=== PATIENT | female | born 1935 | race Caucasian/White ===

== ENCOUNTER 2019-08-23 11:25 | Outpatient (CLI) | payer MEDICARE, OTHER ==
[2019-08-23 15:18] LABS: APPEARANCE,URINE CLOUDY (CLEAR); COLOR,URINE DARK YELLOW (YELLOW)
[2019-08-23 15:19] LABS: OCCULT BLOOD,URINE 1+ (NEGATIVE)
== END 2019-08-23 11:30 ==
LOC: LAB 11:25
PROVIDERS: ATTEND Family Medicine
DX: F07.0 Personality change due to known physiological condition (principal); R30.0 Dysuria
CPT/HCPCS: 81002; 87086